=== PATIENT | female | born 1975 | race Caucasian/White ===

== ENCOUNTER 2018-11-07 17:54 | Emergency (ER) | payer OTHER ==
[2018-11-07 18:14] VITALS: BMI 35.4
--- NOTE | 2018-11-07 19:18 | PDOC ---
History of Present Illness - General Chief Complaint: Vaginal Bleeding Stated Complaint: 2 MONTHS PREG. VAGINAL BLEEDING History Source: Patient Exam Limitations: No Limitations - History of Present Illness Initial Comments: 11/07/18 19:04 43 yo A4 (1 , 2 full term, with pre-eclampsia) LMP 08/30/2018 estimated 9 weeks GA with a hx of HTN presents to emergency department with right lower abdominal pain with vaginal bleeding that occurred today at 5:20 pm. Per the patient, she has been having multiple days throughout the past week of bright red spotting and was seen at [facility] with a TVUS showing an irregular gestational sac without evidence of yolk sac or pole at the time. The patient states after the expulsion of blood in the toilet (described as bright red blood) she had resolution of her RLQ pain. In the ED, she had another vaginal bleeding episode and expelled a clot with lower abdominal pain midline. Currently, she has 2/10 midline cramping pain midline without radiation. Denies the following: fever, chills, chest pain, SOB, nausea, vomiting, dysuria, hematuria, lightheadedness, leg pain/swelling, and headaches. Shx: 3x C-sections, cholecystectomy Allergies: NKDA Meds: Lisinopril/HCTZ 04/25. Social: Denies tobacco, alcohol, and substance abuse. Past History - Suicide/Smoking/Psychosocial Hx Smoking History: Never smoked Have you smoked in the past 12 months: No Information on smoking cessation initiated: No Hx Alcohol Use: No Drug/Substance Use Hx: No *Physical Exam - Vital Signs Last Vital Signs Temp Pulse Resp BP Pulse Ox 98.1 F 70 16 126/87 100 11/07/18 17:55 11/07/18 17:55 11/07/18 17:55 11/07/18 17:55 11/07/18 17:55 ED Treatment Course - LABORATORY CBC & Chemistry Diagram: 11/07/18 20:18 11/07/18 19:24 Medical Decision Making - Medical Decision Making 43 yo A4 (1 , 2 full term, with pre-eclampsia) LMP 08/30/2018 estimated 9 weeks GA with a hx of HTN presents to emergency department with right lower abdominal pain with vaginal bleeding that occurred today at 5:20 pm. Initial vitals: Initial Vital Signs Temp Pulse Resp BP Pulse Ox 98.1 F 70 16 126/87 100 11/07/18 17:55 11/07/18 17:55 11/07/18 17:55 11/07/18 17:55 11/07/18 17:55 Work up: POCUS transabdominal shows no gestational sac with yolk. *DC/Admit/Observation/Transfer Diagnosis at time of Disposition: Inevitable - Discharge Dispostion Disposition: HOME Decision to Admit order: No - Referrals Referrals: ON STAFF,NOT [Primary Care Provider] - [facility] [place] [Provider Group] Elieser Nguyen MD [Staff Physician] - - Patient Instructions Printed Discharge Instructions: Threatened , Dealing With Miscarriage, DI for Miscarriage Additional Instructions: you have been seen in the emergency department for your vaginal bleeding. your ultrasound showed no in the uterus with debris in the cervix canal. your bhcg is lower than your previous visit to [facility] on 11/03/2018. please follow up with the obgyn doctor referred to you in 1 week after discharge. please return to the emergency department if you have worsening symptoms or new concerning symptoms such as fevers, chills, worsening abdominal pain, vaginal discharge, worsening bleeding, and ascending pain. thank you. Print Language: EGYPTIAN - Post Discharge Activity
[2018-11-07] MEDS ORDERED: ACETAMINOPHEN 325 MG TABLET (FP) PO ONE (19:24)
[2018-11-07] MEDS ORDERED: ACETAMINOPHEN 325 MG TABLET (FP) ONE (20:25)
[2018-11-07 20:32] LABS: BASO % 1.2 % (0-2.0); EOS % 1.6 % (0-4.5); HEMATOCRIT 38.5 % (32.4-45.2); HEMOGLOBIN 12.7 GM/dL (10.7-15.3); LYMPH % 31.1 % (8-40); MCH 28.4 pg (25.7-33.7); MCHC 32.8 g/dl (32.0-36.0); MEAN CELL VOLUME 86.6 fl (80-96); MEAN PLT VOLUME 10.5 fl (7.5-11.1); NEUT % 61.1 % (42.8-82.8); PLATELET COUNT 211 K/MM3 (134-434); RBC 4.45 M/mm3 (3.60-5.2); RDW 15.2 % (11.6-15.6); WHITE BLOOD COUNT 4.6 K/mm3 (4.0-10.0)
[2018-11-07 20:40] LABS: EPI CELLS 0.8 /HPF (0-5/HPF); URINE APPEARANCE CLEAR; URINE BACTERIA 67.2 /hpf (NEGATIVE); URINE BILIRUBIN NEGATIVE (NEGATIVE); URINE CASTS 0 /lpf (0-8); URINE COLOR ORANGE; URINE GLUCOSE (UA) NEGATIVE (NEGATIVE); URINE KETONE NEGATIVE (NEGATIVE); URINE LEUK ESTERASE 1+ (NEGATIVE); URINE NITRITE NEGATIVE (NEGATIVE); URINE PROTEIN NEGATIVE (NEGATIVE); URINE RBC 13 /hpf (0-4); URINE UROBILINOGEN 0.2 mg/dL (0.2-1.0); URINE WBC 1 /hpf (0-5)
[2018-11-07 20:58] LABS: ALBUMIN 3.7 g/dl (3.4-5.0); ALK PHOS 74 U/L (45-117); ANION GAP 6 MMOL/L (8-16); BILIRUBIN,TOTAL 0.2 mg/dL (0.2-1); BLOOD UREA NITROGEN 9 mg/dL (7-18); CALCIUM 9.8 mg/dL (8.5-10.1); CHLORIDE 108 mmol/L (98-107); CO2 26 mmol/L (21-32); CREATININE 0.8 mg/dL (0.55-1.3); GLUCOSE,RANDOM 86 mg/dL (74-106); SGOT/AST 18 U/L (15-37); SGPT/ALT 30 U/L (13-61); SODIUM 139 mmol/L (136-145); TOT PROT 7.6 g/dl (6.4-8.2)
[2018-11-07 22:23] LABS: PLATELET ESTIMATE ADEQUATE
--- NOTE | 2018-11-07 22:58 | PDOC ---
Documentation entered by Trinidad Tafoya SCRIBE, acting as scribe for Frankie Smith MD. Frankie Smith MD: This documentation has been prepared by the Lottie mckeon Nirvannie, SCRIBE, under my direction and personally reviewed by me in its entirety. I confirm that the documentation accurately reflects all work, treatment, procedures, and medical decision making performed by me. Attending Attestation - Resident Resident Name: Jason Wong - ED Attending Attestation I have performed the following: I have examined & evaluated the patient, The case was reviewed & discussed with the resident, I agree w/resident's findings & plan - HPI HPI: 11/07/18 19:35 The patient is a 43 year old 2 months female, with a significant past medical history of, who presents to the emergency department with, vaginal bleeding with associated lower, midline abdominal pain. Patient describes her vaginal bleeding as large clots. - Physicial Exam PE: 11/07/18 22:57 Patient is awake and alert, well nourished, in no distress Normocephalic and atraumatic PERRLA, EOMI Conjunctiva are pink CTA RRR Abdomen is soft, nondistended, minimal midline tenderness is appreciated, no tenderness at McBurney's See pelvic exam by Dr. Wong - Medical Decision Making 11/07/18 22:57 43-year-old female, 9 para 3, at approximately 8 weeks gestation age by LMP presents with several episodes of vaginal bleeding with passage of tissue. Patient's hemodynamically stable. Will obtain transvaginal ultrasound/CBC/beta hCG and type and screen. I suspect completed AB. Will reassess. Likely discharge.
[2018-11-07 23:28] VITALS: BP 122/77; PULSE 74; TEMP 97.9
== END 2018-11-07 23:48 | disposition home or self-care (01) ==
LOC: JER 17:54
DX: O26.891 Other specified pregnancy related conditions, first trimester (principal); O20.0 Threatened abortion; O10.911 Unspecified pre-existing hypertension complicating pregnancy, first trimester; Z3A.08 8 weeks gestation of pregnancy
CPT/HCPCS: 36415; 76817-TC; 80053; 81003; 84702; 85025; 86850; 86900; 86901; 87086; 87186; 99282-25

== ENCOUNTER 2021-08-13 18:15 | Emergency (ER) | payer OTHER ==
[2021-08-13 18:25] VITALS: BP 139/90; PULSE 72; TEMP 97; BMI 33.6
[2021-08-13] MEDS ORDERED: IBUPROFEN 600 MG TABLET (FP) PO ONE ×3 (19:15→19:50)
== END 2021-08-13 20:30 | disposition home or self-care (01) ==
LOC: JERFT 18:15 → JER 18:15
DX: R51.9 Headache, unspecified (principal)
CPT/HCPCS: 99283-25

== ENCOUNTER 2021-11-12 15:54 | Emergency (ER) | payer OTHER ==
[2021-11-12 15:58] VITALS: BP 149/93; PULSE 83; TEMP 97.5; BMI 34.5
[2021-11-12] MEDS ORDERED: ACETAMINOPHEN 1000 MG/100 ML BAG IVPB ONE (16:29)
[2021-11-12] MEDS ORDERED: SODIUM CHLORIDE 0.9% 500 ML INFUS.BAG IV ONE (16:29)
[2021-11-12] MEDS ORDERED: METOCLOPRAMIDE HCL INJECTION 10 MG/2 ML VIAL IVPUSH ONE (16:29)
[2021-11-12] MEDS ORDERED: METOCLOPRAMIDE HCL INJECTION 10 MG/2 ML VIAL ONE (16:38)
[2021-11-12] MEDS ORDERED: ACETAMINOPHEN INJECTION 100 ML IVPB ONE (16:38)
[2021-11-12] MEDS ORDERED: KETOROLAC TROMETHAMINE 30 MG/1 ML VIAL IVPUSH ONE (17:17)
[2021-11-12] MEDS ORDERED: KETOROLAC TROMETHAMINE 30 MG/1 ML VIAL ONE (17:43)
== END 2021-11-12 18:30 | disposition home or self-care (01) ==
LOC: JER 15:54
PROC: 3E033GC Introduction of Other Therapeutic Substance into Peripheral Vein, Percutaneous Approach (ICD-10-PCS; principal; 2021-11-12)
DX: R51.9 Headache, unspecified (principal)
CPT/HCPCS: 84703; 99284-25

== ENCOUNTER 2023-03-07 17:36 | Emergency (ER) | payer OTHER ==
[2023-03-07 18:08] VITALS: PULSE 77; RESP 18; TEMP 98; BMI 34.0
[2023-03-07 19:58] LABS: EOS % 1.4 % (0-4.5); HEMATOCRIT 37.6 % (32.4-45.2); LYMPH % 43.3 % (8-40); MCH 25.8 pg (25.7-33.7); MCHC 31.8 g/dl (32.0-36.0); MEAN CELL VOLUME 81.1 fl (80-96); MEAN PLT VOLUME 9.6 fl (7.5-11.1); MONO % 6.6 % (3.8-10.2); NEUT % 47.7 % (42.8-82.8); PLATELET COUNT 207 10^3/uL (134-434); RBC 4.64 M/mm3 (3.60-5.2); RDW 16.2 % (11.6-15.6); WHITE BLOOD COUNT 3.3 K/mm3 (4.0-10.0)
[2023-03-07 20:10] LABS: POTASSIUM 3.8 mmol/L (3.5-5.1)
[2023-03-07 20:11] LABS: CALCIUM 9.4 mg/dL (8.5-10.1)
[2023-03-07 20:13] LABS: ALBUMIN 3.9 g/dl (3.4-5.0); BLOOD UREA NITROGEN 7.1 mg/dL (7-18)
[2023-03-07 20:16] LABS: BILIRUBIN,TOTAL 0.5 mg/dL (0.2-1); CREATININE 0.8 mg/dL (0.55-1.3); TOT PROT 7.5 g/dl (6.4-8.2)
[2023-03-07 21:01] VITALS: BP 148/89
== END 2023-03-07 21:20 | disposition home or self-care (01) ==
LOC: JER 17:36
DX: I10 Essential (primary) hypertension (principal)
CPT/HCPCS: 36415; 71046-TC-FY; 80053; 84484; 85025; 93005; 93010; 99285-25